=== PATIENT | male | born 1995 | race African-American/Black ===

== ENCOUNTER 2019-04-23 15:27 | Emergency (ER) | payer SELFPAY ==
[2019-04-23] MEDS ORDERED: Azithromycin 250 MG Tab PO ONE (18:28)
[2019-04-23] MEDS ORDERED: cefTRIAXone 250 MG in Lidocaine 1% 1 ML IM ONE (18:28)
--- NOTE | 2019-04-23 19:14 | EDM.PDOC ---
ED HPI GENERAL MEDICAL PROBLEM - General Chief Complaint: Genitourinary Problem Stated Complaint: STD'S Time Seen by Provider: 04/23/19 19:07 Source of Information: Reports: Patient History Limitations: Reports: No Limitations - History of Present Illness INITIAL COMMENTS - FREE TEXT/NARRATIVE: Patient is a 23-year-old male who is complaining of having a clear discharge for the past 4 days. Patient states he is in a new relationship which started about a week ago. He denies any fever chills any nausea vomiting diarrhea but is having some dysuria. He denies any abdominal pain. He denies any sores or lesions. He has not had previously similar symptoms. He has no other complaints Duration: Day(s): (4) Location: Reports: Pelvis Quality: Reports: Ache, Burning Severity: Mild Improves with: Reports: None Worsens with: Reports: Other (Urination.) penis Pain Score (Numeric/FACES): 4 - Related Data Allergies Allergy/AdvReac Type Severity Reaction Status Date / Time seafood Allergy Other Uncoded 04/23/19 16:54 Home Meds: Home Meds . [No Known Home Meds] 04/23/19 [History] Past Medical History - Past Health History Medical/Surgical History: Denies Medical/Surgical History Social & Family History - Family History Family Medical History: Noncontributory - Tobacco Use Smoking Status *Q: Current Every Day Smoker Years of Tobacco use: 2 Packs/Tins Daily: 0.5 - Recreational Drug Use Recreational Drug Use: No ED ROS GENERAL - Review of Systems Review Of Systems: Comprehensive ROS is negative, except as noted in HPI. ED EXAM, RENAL/ - Physical Exam Exam: See Below Text/Narrative:: Exam: See Below Exam Limited By: No Limitations Head: Atraumatic Neck: Normal Inspection. No: Carotid Bruit, Lymphadenopathy (R) Respiratory/Chest: No Respiratory Distress, Lungs Clear, Normal Breath Sounds, No Accessory Muscle Use. No: Chest Non-Tender Cardiovascular: Normal Peripheral Pulses, Regular Rate, Rhythm, No Edema, No JVD GI/Abdominal: Normal Bowel Sounds, Tender. No: Non-Tender, Splenomegaly Back Exam: Normal Inspection. No: CVA Tenderness (R) Extremities: Normal Inspection. No: No Pedal Edema Neurological: Alert, Oriented, Normal Cognition Psychiatric: Normal Affect Skin Exam: Warm Lymphatic: No Adenopathy Course - Vital Signs Last Recorded V/S: Last Vital Signs Temp 36.6 C 04/23/19 16:51 Pulse 98 04/23/19 16:51 Resp 18 04/23/19 16:51 BP 124/83 04/23/19 16:51 Pulse Ox 96 04/23/19 16:51 - Orders/Labs/Meds Orders: Active Orders 24 hr Category Date Time Status CHLAMYDIA AND GONORRHEA BY TMA Stat Lab 04/23/19 17:15 Received CULTURE URINE [RM] Stat Lab 04/23/19 17:15 Received Labs: Laboratory Tests 04/23/19 Range/Units 17:15 Urine Color YELLOW Urine Appearance CLEAR Urine pH 5.5 (5.0-8.0) Ur Specific [place] >= 1.030 (1.001-1.035) Urine Protein NEGATIVE (NEGATIVE) mg/dL Urine Glucose (UA) NEGATIVE (NEGATIVE) mg/dL Urine Ketones NEGATIVE (NEGATIVE) mg/dL Urine Occult Blood NEGATIVE (NEGATIVE) Urine Nitrite NEGATIVE (NEGATIVE) Urine Bilirubin NEGATIVE (NEGATIVE) Urine Urobilinogen 0.2 (<2.0) EU/dL Ur Leukocyte Esterase TRACE H (NEGATIVE) Urine RBC 0-2 (0-2/HPF) Urine WBC 2-6 (0-5/HPF) Ur Epithelial Cells RARE (NONE-FEW) Urine Bacteria FEW (NEGATIVE) Meds: Medications Discontinued Medications Generic Name Dose Route Start Last Admin Trade Name Destiny PRN Reason Stop Dose Admin Azithromycin 1,000 mg 04/23/19 18:28 04/23/19 18:41 Zithromax PO 04/23/19 18:29 1,000 mg Q24H ONE Administration Ceftriaxone Sodium 250 mg/ 1 mls @ 1 mls/sec 04/23/19 18:28 04/23/19 18:41 Lidocaine HCl IM 04/23/19 18:29 1 mls/sec ONETIME ONE Administration - Re-Assessments/Exams Free Text/Narrative Re-Assessment/Exam: 04/23/19 19:09 Patient's urine was positive for some leukocytes. GC chlamydia will not be back today. Patient was treated with 1 g of Zithromax p.o. and 250 mg of Rocephin IM is given instructions not to drink alcohol today and not to have any intercourse until his lab works back there his partner will need to be seen and treated. Departure - Departure Time of Disposition: 19:12 Disposition: Home, Self-Care 01 Condition: Good Clinical Impression: Ureteritis, Sexually transmitted disease (STD) - Discharge Information Instructions: Sexually Transmitted Disease, [id number] Referrals: PCP,None [Primary Care Provider] - Additional Instructions: The following information is given to patients seen in the emergency department who are being discharged to home. This information is to outline your options for follow-up care. We provide all patients seen in our emergency department with a follow-up referral. The need for follow-up, as well as the timing and circumstances, are variable depending upon the specifics of your emergency department visit. If you don't have a primary care physician on staff, we will provide you with a referral. We always advise you to contact your personal physician following an emergency department visit to inform them of the circumstance of the visit and for follow-up with them and/or the need for any referrals to a consulting specialist. The emergency department will also refer you to a specialist when appropriate. This referral assures that you have the opportunity for follow-up care with a specialist. All of these measure are taken in an effort to provide you with optimal care, which includes your follow-up. Under all circumstances we always encourage you to contact your private physician who remains a resource for coordinating your care. When calling for follow-up care, please make the office aware that this follow-up is from your recent emergency room visit. If for any reason you are refused follow-up, please contact the [facility] Emergency Department at and asked to speak to the emergency department charge nurse. Sepsis Event Note - Evaluation Sepsis Screening Result: No Definite Risk - Focused Exam Vital Signs: Vital Signs Temp Pulse Resp BP Pulse Ox 04/23/19 16:51 36.6 C 98 18 124/83 96 Date Exam was Performed: 04/23/19 Time Exam was Performed: 19:07
[2019-04-27 13:07] LABS: C.TRACHOMATIS BY TMA Negative (Negative); N.GONORRHOEAE BY TMA Positive (Negative)
== END 2019-04-23 19:25 | disposition home or self-care (01) ==
LOC: MW.ED 15:27
DX: N34.2 Other urethritis (principal); A64 Unspecified sexually transmitted disease; F17.210 Nicotine dependence, cigarettes, uncomplicated; Z91.013 Allergy to seafood
CPT/HCPCS: 81001; 87086; 87491; 87591; 96372; 99283; A9270; J0696; J2001; 99282

== ENCOUNTER 2019-06-21 16:07 | Emergency (ER) | payer SELFPAY ==
--- NOTE | 2019-06-21 16:32 | EDM.PDOC ---
ED HPI GENERAL MEDICAL PROBLEM - General Chief Complaint: Genitourinary Problem Stated Complaint: STD SCREENING Time Seen by Provider: 06/21/19 16:09 Source of Information: Reports: Patient History Limitations: Reports: No Limitations - History of Present Illness INITIAL COMMENTS - FREE TEXT/NARRATIVE: HISTORY AND PHYSICAL: History of present illness: Patient is a 23-year-old male who presents to the ED today with concern of penile drainage that he says is clear and similar to when he was diagnosed with gonorrhea 2 months ago. Patient states he is having some discomfort with urination. Patient states this has been ongoing over the past 1 to 2 days. Patient states he has a new sexual partner in which he is not using condoms. Patient states after his initial treatment 2 months ago he did have resolution of his symptoms but has a new sexual partner over the past 1 to 2 weeks and has noticed recurrence of symptoms. Patient denies any other symptoms or concerns. Patient was seen and evaluated in the ED on 04/23/2019 and at that time was having penile drainage. Patient was given azithromycin and Rocephin with pending gonorrhea and Chlamydia testing at that time. Gonorrhea was positive. Patient denies fever, chills, chest pain, shortness of breath, or cough. Denies headache, neck stiff ness, change in vision, syncope, or near syncope. Denies nausea, vomiting, abdominal pain, diarrhea, constipation. Has not noted any blood in urine or stool. Patient has been eating and drinking appropriately. Review of systems: As per history of present illness and below otherwise all systems reviewed and negative. Past medical history: As per history of present illness and as reviewed below otherwise noncontributory. Surgical history: As per history of present illness and as reviewed below otherwise noncontributory. Social history: See social history for further information Family history: As per history of present illness and as reviewed below otherwise noncontributory. Physical exam: General: Patient is alert, oriented, and in no acute distress. Patient sitting comfortably on exam table. HEENT: Atraumatic, normocephalic, pupils equal and reactive bilaterally, negative for conjunctival pallor or scleral icterus, mucous membranes moist, TMs normal bilaterally, throat clear, neck supple, nontender, trachea midline. No drooling or trismus noted. No meningeal signs. No hot potato voice noted. Lungs: Clear to auscultation, breath sounds equal bilaterally, chest nontender. Heart: S1S2, regular rate and rhythm without overt murmur Abdomen: Soft, nondistended, nontender. Negative for masses or hepatosplenomegaly. Negative for costovertebral tenderness. Pelvis: Stable nontender. Genitourinary: Deferred. Rectal: Deferred. Skin: Intact, warm, dry. No lesions or rashes noted. Extremities: Atraumatic, negative for cords or calf pain. Neurovascular unremarkable. Neuro: Awake, alert, oriented. Cranial nerves II through XII unremarkable. Cerebellum unremarkable. Motor and sensory unremarkable throughout. Exam nonfocal. Notes: Discussed importance for follow-up with a primary care provider. Gonorrhea and chlamydia will not be back today. Patient was treated with 1 g of azithromycin p.o. and 250 mg of Rocephin IM. Patient was instructed not to drink any alcohol today and to not have intercourse until his lab work is back. Discussed with patient that if this is positive for gonorrhea or chlamydia, he needs to have a test of cure before resuming intercourse and that all partners will need to be treated. Voices understanding and is agreeable to plan of care. Denies any further questions or concerns at this time. Diagnostics: UA, Gonorrhea and chlamydia Therapeutics: Rocephin, Azithromycin Prescription: None Impression: Ureteritis Urinary Tract Infection Plan: 1. Do not have any sexual activity until your lab results have returned. If this is positive, have a test of cure before having sexual intercourse and inform any and all sexual partners of positive result. 2. Do not drink any alcohol today. 3. You can alternate ibuprofen and Tylenol as directed for pain and discomfort. 4. If you desire full STD screening this can be done with your primary care provider or at the [facility]. 5. Follow-up with a primary care provider as discussed. Return to the ED as needed and as discussed. Definitive disposition and diagnosis as appropriate pending reevaluation and review of above. - Related Data Allergies Allergy/AdvReac Type Severity Reaction Status Date / Time seafood Allergy Other Uncoded 06/21/19 16:22 Home Meds: Home Meds . [No Known Home Meds] 04/23/19 [History] Past Medical History - Past Health History Medical/Surgical History: Denies Medical/Surgical History - Infectious Disease History Infectious Disease History: Reports: None Social & Family History - Family History Family Medical History: Noncontributory - Tobacco Use Smoking Status *Q: Current Every Day Smoker Years of Tobacco use: 1 Packs/Tins Daily: 1 - Caffeine Use Caffeine Use: Reports: Coffee, Energy Drinks - Recreational Drug Use Recreational Drug Use: No ED ROS GENERAL - Review of Systems Review Of Systems: Comprehensive ROS is negative, except as noted in HPI. ED EXAM, GENERAL - Physical Exam Exam: See Below (see dictation) Course - Vital Signs Last Recorded V/S: Last Vital Signs Temp 98.3 F 06/21/19 16:23 Pulse 105 H 06/21/19 16:23 Resp 16 06/21/19 16:23 BP 136/76 06/21/19 16:23 Pulse Ox 96 06/21/19 16:23 - Orders/Labs/Meds Orders: Active Orders 24 hr Category Date Time Status CHLAMYDIA AND GONORRHEA BY TMA Stat Lab 06/21/19 16:27 Received CULTURE URINE [RM] Stat Lab 06/21/19 16:27 Received Labs: Laboratory Tests 06/21/19 Range/Units 16:27 Urine Color YELLOW Urine Appearance SLT CLOUDY Urine pH 6.0 (5.0-8.0) Ur Specific [place] >= 1.030 (1.001-1.035) Urine Protein TRACE H (NEGATIVE) mg/dL Urine Glucose (UA) NEGATIVE (NEGATIVE) mg/dL Urine Ketones NEGATIVE (NEGATIVE) mg/dL Urine Occult Blood TRACE-INTACT H (NEGATIVE) Urine Nitrite NEGATIVE (NEGATIVE) Urine Bilirubin NEGATIVE (NEGATIVE) Urine Urobilinogen 0.2 (<2.0) EU/dL Ur Leukocyte Esterase SMALL H (NEGATIVE) Urine RBC 2-4 (0-2/HPF) Urine WBC 25-30 (0-5/HPF) Ur Epithelial Cells FEW (NONE-FEW) Urine Bacteria FEW (NEGATIVE) Urine Mucus MODERATE (NONE-MOD) Meds: Medications Discontinued Medications Generic Name Dose Route Start Last Admin Trade Name Freq PRN Reason Stop Dose Admin Azithromycin 1,000 mg 06/21/19 16:37 Zithromax PO 06/21/19 16:38 NOW STA Ceftriaxone Sodium 250 mg/ 1 mls @ 1 mls/sec 06/21/19 16:37 Lidocaine HCl IM 06/21/19 16:38 ONETIME ONE Departure - Departure Time of Disposition: 17:00 Disposition: Home, Self-Care 01 Clinical Impression: Ureteritis Urinary tract infection Qualifiers: Urinary tract infection type: acute cystitis Hematuria presence: without hematuria Qualified Code(s): N30.00 - Acute cystitis without hematuria - Discharge Information Referrals: PCP,None [Primary Care Provider] - Forms: ED Department Discharge Additional Instructions: The following information is given to patients seen in the emergency department who are being discharged to home. This information is to outline your options for follow-up care. We provide all patients seen in our emergency department with a follow-up referral. The need for follow-up, as well as the timing and circumstances, are variable depending upon the specifics of your emergency department visit. If you don't have a primary care physician on staff, we will provide you with a referral. We always advise you to contact your personal physician following an emergency department visit to inform them of the circumstance of the visit and for follow-up with them and/or the need for any referrals to a consulting specialist. The emergency department will also refer you to a specialist when appropriate. This referral assures that you have the opportunity for follow-up care with a specialist. All of these measure are taken in an effort to provide you with optimal care, which includes your follow-up. Under all circumstances we always encourage you to contact your private physician who remains a resource for coordinating your care. When calling for follow-up care, please make the office aware that this follow-up is from your recent emergency room visit. If for any reason you are refused follow-up, please contact the [facility] Emergency Department at and asked to speak to the emergency department charge nurse. [facility] [address] [place] [id number] [facility] [address] [place] [id number] [facility] [address] [place] [address] 1. Do not have any sexual activity until your lab results have returned. If this is positive, have a test of cure before having sexual intercourse and inform any and all sexual partners of positive result. 2. Do not drink any alcohol today. 3. You can alternate ibuprofen and Tylenol as directed for pain and discomfort. 4. If you desire full STD screening this can be done with your primary care provider or at the [facility]. 5. Follow-up with a primary care provider as discussed. Return to the ED as needed and as discussed. Sepsis Event Note - Evaluation Sepsis Screening Result: No Definite Risk - Focused Exam Vital Signs: Vital Signs Temp Pulse Resp BP Pulse Ox 06/21/19 16:23 98.3 F 105 H 16 136/76 96 Date Exam was Performed: 06/21/19 Time Exam was Performed: 16:59 - My Orders Last 24 Hours: My Active Orders 06/21/19 16:27 CHLAMYDIA AND GONORRHEA BY TMA Stat CULTURE URINE [RM] Stat - Assessment/Plan Last 24 Hours: My Active Orders 06/21/19 16:27 CHLAMYDIA AND GONORRHEA BY TMA Stat CULTURE URINE [RM] Stat
[2019-06-21] MEDS ORDERED: cefTRIAXone 250 MG in Lidocaine 1% 1 ML IM ONE (16:37)
[2019-06-21] MEDS ORDERED: Azithromycin 250 MG Tab PO STA (16:37)
== END 2019-06-21 17:40 | disposition home or self-care (01) ==
LOC: MW.ED 16:07
DX: N34.2 Other urethritis (principal); N30.00 Acute cystitis without hematuria; F17.210 Nicotine dependence, cigarettes, uncomplicated; Z91.013 Allergy to seafood
CPT/HCPCS: 81001; 87086; 87491; 87591; 96372; 99283; A9270; J0696; J2001

== ENCOUNTER 2019-08-16 02:25 | Emergency (ER) | payer SELFPAY ==
--- NOTE | 2019-08-16 02:44 | EDM.PDOC ---
ED HPI GENERAL MEDICAL PROBLEM - General Chief Complaint: General Stated Complaint: MEDICAL CLEARANCE Time Seen by Provider: 08/16/19 02:39 Source of Information: Reports: Patient History Limitations: Reports: No Limitations - History of Present Illness INITIAL COMMENTS - FREE TEXT/NARRATIVE: This 23-year-old male presents to the emergency room with a history of asthma and is here for medical clearance at this time patient having no symptoms at all patient stated he last used medication 2 months ago Onset: Today Improves with: Reports: None Worsens with: Reports: None Associated Symptoms: Reports: No Other Symptoms - Related Data Allergies Allergy/AdvReac Type Severity Reaction Status Date / Time peanut Allergy Anaphylactic Verified 08/16/19 02:37 Shock seafood Allergy Other Uncoded 06/21/19 16:22 Home Meds: Home Meds . [No Known Home Meds] 04/23/19 [History] Past Medical History - Past Health History Medical/Surgical History: Denies Medical/Surgical History - Infectious Disease History Infectious Disease History: Reports: None Social & Family History - Family History Family Medical History: Noncontributory - Caffeine Use Caffeine Use: Reports: Coffee, Energy Drinks ED ROS GENERAL - Review of Systems Review Of Systems: See Below Constitutional: Reports: No Symptoms HEENT: Reports: No Symptoms Respiratory: Reports: No Symptoms Cardiovascular: Reports: No Symptoms Endocrine: Reports: No Symptoms GI/Abdominal: Reports: No Symptoms : Reports: No Symptoms Musculoskeletal: Reports: No Symptoms Skin: Reports: No Symptoms Neurological: Reports: No Symptoms Psychiatric: Reports: No Symptoms Hematologic/Lymphatic: Reports: No Symptoms Immunologic: Reports: No Symptoms ED EXAM, GENERAL - Physical Exam Exam: See Below Exam Limited By: No Limitations General Appearance: Alert, WD/WN, No Apparent Distress Eye Exam: Bilateral Eye: Normal Fundi, Normal Inspection Ears: Normal External Exam, Normal Canal, Hearing Grossly Normal, Normal TMs Ear Exam: Bilateral Ear: Auricle Normal, Canal Normal Nose: Normal Inspection, Normal Mucosa Throat/Mouth: Normal Inspection, Normal Lips, Normal Oropharynx, Normal Voice Head: Atraumatic Neck: Normal Inspection, Supple Respiratory/Chest: No Respiratory Distress, Lungs Clear, Normal Breath Sounds, Chest Non-Tender Rectal (Males) Exam: Deferred Extremities: Normal Inspection Neurological: Alert, Oriented, CN II-XII Intact Psychiatric: Normal Affect, Normal Mood Course - Vital Signs Last Recorded V/S: Last Vital Signs Temp 97.2 F 08/16/19 02:35 Pulse 88 08/16/19 02:35 Resp 16 08/16/19 02:35 BP 146/92 H 08/16/19 02:35 Pulse Ox 96 08/16/19 02:35 Departure - Departure Time of Disposition: 02:44 Disposition: Home, Self-Care 01 Condition: Good Clinical Impression: Medical clearance for incarceration - Discharge Information Referrals: PCP,None [Primary Care Provider] - Sepsis Event Note - Evaluation Sepsis Screening Result: No Definite Risk - Focused Exam Vital Signs: Vital Signs Temp Pulse Resp BP Pulse Ox 08/16/19 02:35 97.2 F 88 16 146/92 H 96 Date Exam was Performed: 08/16/19 Time Exam was Performed: 02:39
== END 2019-08-16 02:45 ==
LOC: MW.ED 02:25
CPT/HCPCS: 99282; 99283

== ENCOUNTER 2021-09-02 13:23 | Emergency (ER) | payer SELFPAY | END 2021-09-02 13:47 | disposition home or self-care (01) | LOC: MW.ED 13:23 | DX: J01.00 Acute maxillary sinusitis, unspecified (principal); Z79.899 Other long term (current) drug therapy; Z91.013 Allergy to seafood; Z91.010 Allergy to peanuts | CPT/HCPCS: 99282; 99283 ==

== ENCOUNTER 2022-05-20 19:15 | Emergency (ER) | payer OTHER ==
[2022-05-20] MEDS ORDERED: Lidocaine 1% PF 2 ML SDV INJECT ONE (19:19)
[2022-05-20] MEDS ORDERED: Diphtheria,Pertussis(Acell),Tetanus Vaccine 0.5 ML Syringe IM ONE (19:19)
== END 2022-05-20 19:56 | disposition home or self-care (01) ==
LOC: MW.ED 19:15
DX: S61.214A Laceration without foreign body of right ring finger without damage to nail, initial encounter (principal); J45.909 Unspecified asthma, uncomplicated; Z23 Encounter for immunization; W45.8XXA Other foreign body or object entering through skin, initial encounter; Y93.G1 Activity, food preparation and clean up; Y92.69 Other specified industrial and construction area as the place of occurrence of the external cause
CPT/HCPCS: 12001; 90471; 99282-25; 99283; J3490

== ENCOUNTER 2023-08-07 01:00 | Emergency (ER) | payer OTHER ==
[2023-08-07] MEDS: Sodium Chloride 0.9% 2.5 ML Syringe FLUSH PRN (01:23)
[2023-08-07] MEDS: Sodium Chloride 0.9% 10 ML Syringe FLUSH PRN (01:23)
[2023-08-07 01:45] LABS: BASOPHILS ABSOLUTE AUTO 0.04 K/uL (0.00-0.20); BASOPHILS PERCENT AUTO 0.5 % (0.0-1.0); EOSINOPHILS ABSOLUTE AUTO 0.09 K/uL (0.00-0.45); EOSINOPHILS PERCENT AUTO 1.2 % (0.0-6.0); HEMATOCRIT 40.8 % (42.0-52.0); HEMOGLOBIN 14.1 g/dL (14.0-18.0); IMMATURE GRAN ABSOLUTE AUTO 0.05 K/uL (0.00-0.05); IMMATURE GRAN PERCENT AUTO 0.7 % (0.0-0.4); LYMPHOCYTES ABSOLUTE AUTO 2.19 K/uL (1.00-4.80); LYMPHOCYTES PERCENT AUTO 29.4 % (24.0-44.0); MEAN CORPUSCULAR HEMOGLOBIN 32.6 pg (28.0-32.0); MEAN CORPUSCULAR HGB CONC 34.6 g/dL (32.0-36.0); MEAN CORPUSCULAR VOLUME 94.2 fL (83.0-99.0); MEAN PLATELET VOLUME 9.3 fL (9.4-12.4); MONOCYTES ABSOLUTE AUTO 0.48 K/uL (0.00-0.80); MONOCYTES PERCENT AUTO 6.5 % (0.0-8.0); NEUTROPHILS ABSOLUTE AUTO 4.59 K/uL (1.80-7.70); NEUTROPHILS PERCENT AUTO 61.7 % (41.0-71.0); PLATELET COUNT,PLT 256 K/uL (150-400); RED BLOOD CELL COUNT 4.33 M/uL (4.52-5.90); WHITE BLOOD CELL COUNT,WBC 7.44 K/uL (3.9-11.3)
[2023-08-07 01:50] LABS: INR 1.07 (0.86-1.11); PTT,PARTIAL THROMBOPLSTIN TIME 24.1 SEC (23.9-30.7)
[2023-08-07] MEDS: Lidocaine/Epineph/Tetracaine 3 ML Syringe TOP ONE (01:52)
[2023-08-07 01:53] LABS: A/G RATIO 1.2 (0.9-1.6); ALBUMIN 4.5 g/dL (3.4-5.0); BILIRUBIN TOTAL 0.3 mg/dL (0.2-1.0); CARBON DIOXIDE,CO2 23.6 mmol/L (21.0-32.0); CREATININE 0.9 mg/dL (0.8-1.3); EST CRCL DRUG DOSING (CG) 136.52 mL/min; POTASSIUM,K 3.5 mmol/L (3.5-5.1); PROTEIN TOTAL,TP 8.2 g/dL (6.4-8.2)
[2023-08-07] MEDS: Iopamidol 755 MG/ML 500 ML Multipack Bottle IVPUSH STA (02:01)
[2023-08-07] MEDS: Lidocaine 1% with EPINEPHrine 1:200,000 30 ML SDV INFILT STA (03:06)
[2023-08-07] MEDS: Diphtheria,Pertussis(Acell),Tetanus Vaccine 0.5 ML Syringe IM ONE (03:45)
== END 2023-08-07 03:53 | disposition home or self-care (01) ==
LOC: MERGE 01:00 → MW.ED 01:00
DX: S01.111A Laceration without foreign body of right eyelid and periocular area, initial encounter (principal); S01.411A Laceration without foreign body of right cheek and temporomandibular area, initial encounter; S20.219A Contusion of unspecified front wall of thorax, initial encounter; S16.1XXA Strain of muscle, fascia and tendon at neck level, initial encounter; M25.512 Pain in left shoulder; Z91.013 Allergy to seafood; Z79.899 Other long term (current) drug therapy; Z23 Encounter for immunization; V49.50XA Passenger injured in collision with unspecified motor vehicles in traffic accident, initial encounter
CPT/HCPCS: 12013; 36415; 70450; 71260; 72125; 74177; 80053; 83690; 85025; 85610; 85730; 90471; 90715; 93005; 99285; A9270; J3490; Q9967; 12011; 93010; 99283